=== PATIENT | female | born 2000 | race Caucasian/White ===

== ENCOUNTER 2024-01-14 18:06 | Emergency (ER) | payer OTHER ==
[2024-01-14 18:16] VITALS: BP 104/71; PULSE 75; RESP 16; TEMP 97.7; BMI 31.6
[2024-01-14] MEDS ORDERED: ACETAMINOPHEN 500 MG TABLET (FP) ONE (19:45)
[2024-01-14] MEDS: ACETAMINOPHEN 500 MG TABLET (FP) PO ONE (19:47)
== END 2024-01-14 19:55 | disposition home or self-care (01) ==
LOC: JERFT 18:06 → JER 18:06 → JERFT 19:55
DX: R09.81 Nasal congestion (principal); R05.9 Cough, unspecified; M79.10 Myalgia, unspecified site; J02.9 Acute pharyngitis, unspecified; J39.8 Other specified diseases of upper respiratory tract; B97.89 Other viral agents as the cause of diseases classified elsewhere; Z20.822 Contact with and (suspected) exposure to COVID-19
CPT/HCPCS: 0241U-QW; 84703; 99283-25